=== PATIENT | female | born 1950 | race Caucasian/White ===

== ENCOUNTER → 2018-05-28 | Outpatient (CLI) | payer MEDICARE, BC ==
[2018-05-28 10:07] VITALS: BP 136/84; PULSE 86; TEMP 98.2
--- NOTE | 2018-05-28 10:39 | P.HPBAR ---
Bariatric H&P - History & Physicial H&P Date: 05/28/18 History & Physicial: Visit/CC: lap band follow up Patient initial contact: Initial weight: Initial weight in pounds: Height: 5 ft 2 in Initial BMI: Last weight: Current weight: 74.48 kg Current weight in pounds: 164.20 Current BMI: 30.0 [place] body weight (based on NIH guidelines): 49.895 kg Excess body weight loss: The patient is a 67 year-old F who presents for Bariatric Assessment. She presents today for her LAP-BAND adjustment. She has had issues with dysphagia. Past Medical History Past Medical History: Diabetes Mellitus, Hypertension History of Any Multi-Drug Resistant Organisms: None Reported Past Surgical History: Bariatric Surgery, Orthopedic Surgery, Tubal Ligation Additional Past Surgical History / Comment(s): bilateral carpal tunnel surgery left shoulder arthroscopy lap band Past Anesthesia/Blood Transfusion Reactions: No Reported Reaction Smoking Status: Never smoker Surgical - Exam Vital Signs Temp Pulse BP 98.2 F 86 136/84 05/28/18 10:04 05/28/18 10:04 05/28/18 10:04 - General well developed, no distress - Eyes PERRL - ENT normal pinna - Respiratory normal expansion - Cardiovascular Rhythm: regular - Abdomen Abdomen: soft, non tender Bariatric Assessment & Plan Plan: The patient's lap band was adjusted. She 5.5 mL her band. Patient was able require without difficulty. She'll follow-up in 2 weeks. Bariatric Checklist Checklist: Plan: Checklist: EGD: 1. Hiatal hernia: 2. H. Pylori: HgbA1c: Vitamin D: Smoking: Never smoker Primary care physician referral: Psychiatry clearance: Cardiology clearance: Sleep study: Diet journal: VTE risk score: VTE risk level: Rehab needs at discharge:
== END | disposition home or self-care (01) ==
LOC: BARWHC3 09:35
PROVIDERS: ATTEND Surgery
DX: Z46.51 Encounter for fitting and adjustment of gastric lap band (principal); R13.10 Dysphagia, unspecified; Z98.84 Bariatric surgery status; Z79.899 Other long term (current) drug therapy; Z98.51 Tubal ligation status; Z98.890 Other specified postprocedural states
CPT/HCPCS: 99212

== ENCOUNTER → 2018-06-08 | Outpatient (CLI) | payer MEDICARE, BC ==
--- NOTE | 2018-06-08 14:38 | P.HPBAR ---
Bariatric H&P - History & Physicial H&P Date: 06/08/18 History & Physicial: Visit/CC: Patient initial contact: Initial weight: Initial weight in pounds: Height: Initial BMI: Last weight: 169 Current weight: 168 Current weight in pounds: Current BMI: [place] body weight (based on NIH guidelines): Excess body weight loss: The patient is a 67 year-old F who presents for Bariatric Assessment. Patient presents today for her LAP-BAND follow-up. She is requesting a fill. She currently feels hungry. Past Medical History Past Medical History: Diabetes Mellitus, Hypertension History of Any Multi-Drug Resistant Organisms: None Reported Past Surgical History: Bariatric Surgery, Orthopedic Surgery, Tubal Ligation Additional Past Surgical History / Comment(s): bilateral carpal tunnel surgery left shoulder arthroscopy lap band Past Anesthesia/Blood Transfusion Reactions: No Reported Reaction Smoking Status: Never smoker Surgical - Exam - General well developed, no distress - Eyes PERRL - ENT normal pinna - Neck no masses - Respiratory normal expansion - Cardiovascular Rhythm: regular - Abdomen Abdomen: soft, non tender Bariatric Assessment & Plan Plan: Patient's lap band was adjusted. She had 4 mL added to the band. She currently is 4 mL in the band she'll follow-up in one month. Bariatric Checklist Checklist: Plan: Checklist: EGD: 1. Hiatal hernia: 2. H. Pylori: HgbA1c: Vitamin D: Smoking: Never smoker Primary care physician referral: Psychiatry clearance: Cardiology clearance: Sleep study: Diet journal: VTE risk score: VTE risk level: Rehab needs at discharge:
[2018-06-08 14:53] VITALS: BP 162/79; PULSE 78; RESP 16; TEMP 98.2; BMI 30.6
== END | disposition home or self-care (01) ==
LOC: BARWHC3 13:30
PROVIDERS: ATTEND Surgery
DX: Z48.815 Encounter for surgical aftercare following surgery on the digestive system (principal); E11.9 Type 2 diabetes mellitus without complications; I10 Essential (primary) hypertension; Z98.890 Other specified postprocedural states; Z98.84 Bariatric surgery status
CPT/HCPCS: 99212

== ENCOUNTER → 2018-07-13 | Outpatient (CLI) | payer MEDICARE, BC ==
[2018-07-13 15:12] VITALS: BP 175/84; PULSE 90; RESP 16; TEMP 98.7; BMI 30.5
--- NOTE | 2018-07-13 15:20 | P.HPBAR ---
Bariatric H&P - History & Physicial H&P Date: 07/13/18 History & Physicial: Visit/CC: BAND ADJ Patient initial contact: Initial weight: 75.948 kg Initial weight in pounds: 167.44 Height: 5 ft 2 in Initial BMI: 30.6 Last weight: Current weight: 75.75 kg Current weight in pounds: 167.00 Current BMI: 30.5 [place] body weight (based on NIH guidelines): 49.895 kg Excess body weight loss: 0.7% The patient is a 67 year-old F who presents for Bariatric Assessment. The patient presents today for lab band follow up. She is requesting a fill. She currently feels hungry. Past Medical History Past Medical History: Diabetes Mellitus, Hypertension History of Any Multi-Drug Resistant Organisms: None Reported Past Surgical History: Bariatric Surgery, Orthopedic Surgery, Tubal Ligation Additional Past Surgical History / Comment(s): bilateral carpal tunnel surgery left shoulder arthroscopy lap band Past Anesthesia/Blood Transfusion Reactions: No Reported Reaction Past Psychological History: No Psychological Hx Reported Smoking Status: Never smoker Past Alcohol Use History: None Reported Past Drug Use History: None Reported Surgical - Exam Vital Signs Temp Pulse Resp BP 98.7 F 90 16 175/84 07/13/18 15:09 07/13/18 15:09 07/13/18 15:09 07/13/18 15:09 - General well developed, no distress - Eyes PERRL - Abdomen Abdomen: soft, non tender Bariatric Assessment & Plan Plan: Patient's lap band was adjusted. She had 1 mL added to her band. She is 5 mL in the band. She was able to water without difficulty. She'll follow-up in 4 weeks. Bariatric Checklist Checklist: Plan: Checklist: EGD: 1. Hiatal hernia: 2. H. Pylori: HgbA1c: Vitamin D: Smoking: Never smoker Primary care physician referral: Psychiatry clearance: Cardiology clearance: Sleep study: Diet journal: VTE risk score: VTE risk level: Rehab needs at discharge:
== END | disposition home or self-care (01) ==
LOC: BARWHC3 13:39
PROVIDERS: ATTEND Surgery
DX: Z46.51 Encounter for fitting and adjustment of gastric lap band (principal); T73.0XXA Starvation, initial encounter; Z98.84 Bariatric surgery status; Z98.890 Other specified postprocedural states; Z98.51 Tubal ligation status
CPT/HCPCS: 99211

== ENCOUNTER → 2021-05-21 | Outpatient (CLI) | payer MEDICARE ==
[2021-05-21 15:36] VITALS: BP 150/74; PULSE 83; TEMP 98.1; BMI 32.1
--- NOTE | 2021-05-21 15:48 | P.HPBAR ---
Bariatric H&P - History & Physicial H&P Date: 05/21/21 History & Physicial: Visit/CC: Patient initial contact: Initial weight: 75.948 kg Initial weight in pounds: 167.44 Height: 5 ft 2 in Initial BMI: 30.6 Last weight: Current weight: 79.832 kg Current weight in pounds: 176.00 Current BMI: 32.1 [place] body weight (based on NIH guidelines): 49.895 kg Excess body weight loss: The patient is a 70 year-old F who presents for Bariatric Assessment. Patient presents today for lab band follow up.. Been seen several years. She's gained approximately 10 pounds. Past Medical History Past Medical History: Diabetes Mellitus, Hypertension History of Any Multi-Drug Resistant Organisms: None Reported Past Surgical History: Bariatric Surgery, Orthopedic Surgery, Tubal Ligation Additional Past Surgical History / Comment(s): bilateral carpal tunnel surgery left shoulder arthroscopy lap band Past Anesthesia/Blood Transfusion Reactions: No Reported Reaction Smoking Status: Never smoker Surgical - Exam Vital Signs Temp Pulse BP 98.1 F 83 150/74 05/21/21 15:32 05/21/21 15:32 05/21/21 15:32 - General well developed, well nourished, no distress - Eyes PERRL - ENT normal pinna - Neck no masses - Respiratory normal expansion - Cardiovascular Rhythm: regular - Abdomen Abdomen: soft, non tender Bariatric Assessment & Plan Plan: Patient LAP-BAND was just. 0.5 mL added to her band. She currently has 5.5 mL in the band. She'll follow-up in 4 weeks. Bariatric Checklist Checklist: Plan: Checklist: EGD: 1. Hiatal hernia: 2. H. Pylori: HgbA1c: Vitamin D: Smoking: Never smoker Primary care physician referral: lap band follow up Psychiatry clearance: Cardiology clearance: Sleep study: Diet journal: VTE risk score: VTE risk level: Rehab needs at discharge:
== END ==
LOC: BARWHC3 14:23
PROVIDERS: ATTEND Surgery
DX: Z46.51 Encounter for fitting and adjustment of gastric lap band (principal); E11.9 Type 2 diabetes mellitus without complications; I10 Essential (primary) hypertension; Z98.84 Bariatric surgery status
CPT/HCPCS: 99212

== ENCOUNTER → 2021-06-11 | Outpatient (CLI) | payer MEDICARE ==
[2021-06-11 14:26] VITALS: BP 146/78; PULSE 76; TEMP 98.2; BMI 31.8
--- NOTE | 2021-06-27 12:14 | P.HPBAR ---
Bariatric H&P - History & Physicial H&P Date: 06/11/21 History & Physicial: Visit/CC: lap band follow up Patient initial contact: Initial weight: 75.948 kg Initial weight in pounds: 167.44 Height: 5 ft 2 in Initial BMI: 30.6 Last weight: Current weight: 78.925 kg Current weight in pounds: 174.00 Current BMI: 31.8 [place] body weight (based on NIH guidelines): 49.895 kg Excess body weight loss: The patient is a 70 year-old F who presents for Bariatric Assessment. Patient has safer LAP-BAND follow-up. States she feels slightly hungry. She's had no significant GERD and dysphagia Past Medical History Past Medical History: Diabetes Mellitus, Hypertension History of Any Multi-Drug Resistant Organisms: None Reported Past Surgical History: Bariatric Surgery, Orthopedic Surgery, Tubal Ligation Additional Past Surgical History / Comment(s): bilateral carpal tunnel surgery left shoulder arthroscopy lap band Past Anesthesia/Blood Transfusion Reactions: No Reported Reaction Past Psychological History: No Psychological Hx Reported Smoking Status: Never smoker Past Alcohol Use History: None Reported Past Drug Use History: None Reported Surgical - Exam Vital Signs Temp Pulse BP 98.2 F 76 146/78 06/11/21 14:24 06/11/21 14:24 06/11/21 14:24 - General well developed, well nourished, no distress - Eyes PERRL - ENT normal pinna - Neck no masses - Respiratory normal expansion - Cardiovascular Rhythm: regular - Abdomen Abdomen: soft, non tender Bariatric Assessment & Plan Plan: Patient's will be observed. Her GERD is minimal. She will follow-up in 4 weeks. Bariatric Checklist Checklist: Plan: Checklist: EGD: 1. Hiatal hernia: 2. H. Pylori: HgbA1c: Vitamin D: Smoking: Never smoker Primary care physician referral: lap band follow up Psychiatry clearance: Cardiology clearance: Sleep study: Diet journal: VTE risk score: VTE risk level: Rehab needs at discharge:
== END ==
LOC: BARWHC3 13:54
PROVIDERS: ATTEND Surgery
DX: Z09 Encounter for follow-up examination after completed treatment for conditions other than malignant neoplasm (principal); K21.9 Gastro-esophageal reflux disease without esophagitis; Z98.84 Bariatric surgery status
CPT/HCPCS: 99211

== ENCOUNTER → 2021-06-25 | Outpatient (CLI) | payer MEDICARE ==
--- NOTE | 2021-06-25 15:04 | P.HPBAR ---
Bariatric H&P - History & Physicial H&P Date: 06/25/21 History & Physicial: Visit/CC: Patient initial contact: Initial weight: 75.948 kg Initial weight in pounds: Height: 5 ft 2 in Initial BMI: Last weight: Current weight: 78.925 kg Current weight in pounds: Current BMI: [place] body weight (based on NIH guidelines): Excess body weight loss: The patient is a 70 year-old F who presents for Bariatric Assessment. Patient presents today for laparoscopic adjustable procedure. Sclerae is requesting a fill. Past Medical History Past Medical History: Diabetes Mellitus, Hypertension History of Any Multi-Drug Resistant Organisms: None Reported Past Surgical History: Bariatric Surgery, Orthopedic Surgery, Tubal Ligation Additional Past Surgical History / Comment(s): bilateral carpal tunnel surgery left shoulder arthroscopy lap band Past Anesthesia/Blood Transfusion Reactions: No Reported Reaction Past Psychological History: No Psychological Hx Reported Smoking Status: Never smoker Past Alcohol Use History: None Reported Past Drug Use History: None Reported Surgical - Exam - General well developed, well nourished, no distress - Eyes PERRL - ENT normal pinna - Neck no masses - Respiratory normal expansion - Cardiovascular Rhythm: regular - Abdomen Abdomen: soft, non tender Bariatric Assessment & Plan Plan: His LAP-BAND system. She had 0.5 mL Atrovent. 6.3 mL in the band. She will follow-up in 4 weeks. Bariatric Checklist Checklist: Plan: Checklist: EGD: 1. Hiatal hernia: 2. H. Pylori: HgbA1c: Vitamin D: Smoking: Never smoker Primary care physician referral: lap band follow up Psychiatry clearance: Cardiology clearance: Sleep study: Diet journal: VTE risk score: VTE risk level: Rehab needs at discharge:
[2021-06-25 15:06] VITALS: BP 145/81; PULSE 74; RESP 18; TEMP 98.2; BMI 31.8
== END ==
LOC: BARWHC3 14:10
PROVIDERS: ATTEND Surgery
DX: Z46.51 Encounter for fitting and adjustment of gastric lap band (principal); E11.9 Type 2 diabetes mellitus without complications; I10 Essential (primary) hypertension
CPT/HCPCS: 99212

== ENCOUNTER → 2021-07-23 | Outpatient (CLI) | payer MEDICARE ==
[2021-07-23 14:43] VITALS: BP 125/75; PULSE 72; RESP 18; TEMP 98.2; BMI 31.1
--- NOTE | 2021-07-24 12:44 | P.HPBAR ---
Bariatric H&P - History & Physicial H&P Date: 07/23/21 History & Physicial: Visit/CC: lap band follow up Patient initial contact: Initial weight: 75.948 kg Initial weight in pounds: 167.44 Height: 5 ft 2 in Initial BMI: 30.6 Last weight: Current weight: 77.383 kg Current weight in pounds: 170.60 Current BMI: 31.1 [place] body weight (based on NIH guidelines): 49.895 kg Excess body weight loss: The patient is a 70 year-old F who presents for Bariatric Assessment. Patient rents today for [place] fall. She's had some minimal GERD. She is an excellent loss. She does not wish to have her band adjusted. Past Medical History Past Medical History: Diabetes Mellitus, Hypertension History of Any Multi-Drug Resistant Organisms: None Reported Past Surgical History: Bariatric Surgery, Orthopedic Surgery, Tubal Ligation Additional Past Surgical History / Comment(s): bilateral carpal tunnel surgery left shoulder arthroscopy lap band Past Anesthesia/Blood Transfusion Reactions: No Reported Reaction Past Psychological History: No Psychological Hx Reported Smoking Status: Never smoker Past Alcohol Use History: None Reported Past Drug Use History: None Reported Surgical - Exam Vital Signs Temp Pulse Resp BP 98.2 F 72 18 125/75 07/23/21 14:32 07/23/21 14:32 07/23/21 14:32 07/23/21 14:32 - General well developed, well nourished, no distress - Eyes PERRL - ENT normal pinna - Neck no masses - Respiratory normal expansion - Cardiovascular Rhythm: regular - Abdomen Abdomen: soft, non tender Bariatric Assessment & Plan Plan: Status post laparoscopic procedure. Patient's crit is minimal will be observed. She'll follow-up in 4 weeks. Bariatric Checklist Checklist: Plan: Checklist: EGD: 1. Hiatal hernia: 2. H. Pylori: HgbA1c: Vitamin D: Smoking: Never smoker Primary care physician referral: lap band follow up Psychiatry clearance: Cardiology clearance: Sleep study: Diet journal: VTE risk score: VTE risk level: Rehab needs at discharge:
== END ==
LOC: BARWHC3 14:13
PROVIDERS: ATTEND Surgery
DX: K22.70 Barrett's esophagus without dysplasia (principal); K21.9 Gastro-esophageal reflux disease without esophagitis; E11.9 Type 2 diabetes mellitus without complications; I10 Essential (primary) hypertension; Z98.84 Bariatric surgery status
CPT/HCPCS: 99211